=== PATIENT | male | born 1970 | race American Indian/Alaskan Native ===

== ENCOUNTER 2021-01-12 19:02 | Observation (INO) | payer MEDICARE ==
--- NOTE | 2021-01-12 20:12 | Event Note ---
ED Screening Note ED Screening Note: Patient reports he was sent from halfway due to abnormal lab He reports that his creatinine was elevated He denies any physical complaints at this time Patient states that he has a history of chronic hypertension He reports that he was just admitted to [facility] [place] and was admitted to the ICU in December 2020 He states he has not had to be on dialysis since March 2020 He states he previously used to do peritoneal dialysis but he reports that his kidneys recovered and he got to stop dialysis This initial assessment/diagnostic orders/clinical plan/treatment(s) is/are subject to change based on patients health status, clinical progression and re- assessment by fellow clinical providers in the ED. Further treatment and workup at subsequent clinical providers discretion. Patient/guardian urged not to elope from the ED as their condition may be serious if not clinically assessed and managed. Initial orders include: Labs
[2021-01-12 20:36] LABS: Basophils # (Auto) 0.2 K/mm3 (0.0-0.1); Basophils % (Auto) 1.9 % (0.0-1.8); Eosinophils # (Auto) 0.6 K/mm3 (0.0-0.4); Eosinophils % (Auto) 7.5 % (0.0-4.3); Hematocrit 36.5 % (35.5-45.6); Hemoglobin 11.5 gm/dl (11.8-15.2); Lymphocytes # (Auto) 1.6 K/mm3 (1.2-5.4); Lymphocytes % (Auto) 19.6 % (13.4-35.0); Mean Corpuscular HGB Conc 32 % (32-34); Mean Corpuscular Volume 84 fl (84-94); Monocytes # (Auto) 0.3 K/mm3 (0.0-0.8); Platelet Count 244 K/mm3 (140-440); Red Blood Count 4.34 M/mm3 (3.65-5.03); Red Cell Distribution Width 13.7 % (13.2-15.2)
[2021-01-12 21:16] LABS: Albumin 4.2 g/dL (3.9-5); Calcium 8.7 mg/dL (8.4-10.2)
[2021-01-12] MEDS ORDERED: SODIUM POLYSTYRENE 15 GM/60 ML ORAL LIQD PO ONE (21:17)
[2021-01-12] MEDS ORDERED: SODIUM BICARB 8.4% 50 MEQ/50 ML SYRINGE IV ONE (21:31)
[2021-01-12] MEDS ORDERED: CALCIUM GLUCONATE 1,000 MG in SODIUM CHLORIDE 0.9% 100 ML IV ONE (21:31)
[2021-01-12] MEDS ORDERED: DEXTROSE 50% IN WATER (25GM) 50 ML SYRINGE IV ONE (21:31)
[2021-01-12] MEDS ORDERED: INSULIN REGULAR, HUMAN 100 UNITS/1 ML IV ONE (21:31)
--- NOTE | 2021-01-12 21:53 | Emergency Department Report ---
HPI - General Chief Complaint: Recheck/Abnormal Lab/Rx Time Seen by Provider: 01/12/21 21:17 - [facility] HPI: Reassessment 2 The patient is a 50-year-old male present with a chief complaint of abnormal creatinine. The patient had a history of renal failure in the past requiring peritoneal dialysis. Patient states she has not required dialysis since 2020 after his kidney function improved. Patient was recently incarcerated for the past 4 days and states he was not given any of his blood pressure medication. Patient states he had blood work drawn yesterday in skilled nursing was brought to the ED today secondary to elevated creatinine. Patient does not recall where his baseline creatinine is. Patient states he just developed some lightheadedness yesterday. Patient denies any other complaints including shortness of breath or peripheral edema ED Past Medical Hx - Past Medical History Hx Hypertension: Yes Hx Renal Disease: Yes - Surgical History Past Surgical History?: No Additional Surgical History: PD catheter placement and removal - Family History Family history: no significant - Social History Smoking Status: Former Smoker (None since December 18, 2020) Substance Use Type: None, Marijuana ED Review of Systems ROS: Stated complaint: ABNORMAL LABS Other details as noted in HPI Constitutional: no symptoms reported Eyes: denies: eye pain ENT: denies: throat pain Respiratory: no symptoms reported. denies: shortness of breath Cardiovascular: denies: chest pain Endocrine: no symptoms reported Gastrointestinal: denies: abdominal pain Genitourinary: denies: testicular pain Musculoskeletal: denies: back pain Neurological: denies: headache Physical Exam - Physical Exam Vital Signs: Vital Signs 01/12/21 19:11 Temperature 98.4 F Pulse Rate 61 Respiratory 18 Rate Blood Pressure 132/83 O2 Sat by Pulse 95 Oximetry Physical Exam: GENERAL: The patient is well-developed well-nourished male lying on stretcher not appearing to be in acute distress. [] HEENT: Normocephalic. Atraumatic. Extraocular motions are intact. Patient has moist mucous membranes. NECK: Supple. Trachea midline CHEST/LUNGS: Clear to auscultation. There is no respiratory distress noted. HEART/CARDIOVASCULAR: Regular. There is no tachycardia. There is no gallop rub or murmur. ABDOMEN: Abdomen is soft, nontender. Patient has normal bowel sounds. There is no abdominal distention. SKIN: There is no rash. There is no edema. There is no diaphoresis. NEURO: The patient is awake, alert, and oriented. The patient is cooperative. The patient has no focal neurologic deficits. The patient has normal speech. GCS 15 MUSCULOSKELETAL: There is no evidence of acute injury. ED Course Vital Signs 01/12/21 19:11 Temperature 98.4 F Pulse Rate 61 Respiratory 18 Rate Blood Pressure 132/83 O2 Sat by Pulse 95 Oximetry - Consultations Consultation #1: 01/12/21 22:43 Nephrology paged 01/12/21 22:59 Case discussed with [address] Stephen-recommends initiating sodium bicarb 650 mEq p.o. 3 times daily in addition to normal antihyperkalemic meds and repeat BMP in 3 hours. If potassium remains elevated contact him. ED Medical Decision Making - Lab Data Result diagrams: 01/12/21 20:22 01/12/21 20:22 Laboratory Tests 01/12/21 01/12/21 20:22 20:22 WBC 8.3 RBC 4.34 Hgb 11.5 L Hct 36.5 MCV 84 MCH 27 L MCHC 32 RDW 13.7 Plt Count 244 Lymph % (Auto) 19.6 [place] % (Auto) 4.0 Eos % (Auto) 7.5 H Baso % (Auto) 1.9 H Lymph # (Auto) 1.6 [place] # (Auto) 0.3 Eos # (Auto) 0.6 H Baso # (Auto) 0.2 H Seg Neutrophils % 67.0 Seg Neutrophils # 5.6 Sodium 135 L Potassium 5.8 H Chloride 105.3 Carbon Dioxide 16 L Anion Gap 20 BUN 62 H Creatinine 7.2 H Estimated GFR 10 BUN/Creatinine Ratio 9 Glucose 97 Calcium 8.7 Total Bilirubin 0.20 AST 8 ALT 11 Alkaline Phosphatase 68 Total Protein 6.9 Albumin 4.2 Albumin/Globulin Ratio 1.6 - EKG Data -: EKG Interpreted by Me EKG shows normal: sinus rhythm Rate: normal - EKG Data When compared to previous EKG there are: previous EKG unavailable Interpretation: other (No peaked T waves) Critical care attestation.: If time is entered above; I have spent that time in minutes in the direct care of this critically ill patient, excluding procedure time. ED Disposition Clinical Impression: ESRD (end stage renal disease), Hyperkalemia Disposition: 09 ADMITTED INPATIENT Is pt being admited?: Yes Does the pt Need Aspirin: No Condition: Fair Time of Disposition: 22:59 (Hospitalist called (Dr. Munoz))
[2021-01-12] MEDS ORDERED: HYDROmorphone 1 MG/1 ML INJ IV PRN (23:33)
[2021-01-12] MEDS ORDERED: ALBUTEROL 2.5 MG/3 ML NEBU IH PRN (23:33)
[2021-01-12] MEDS ORDERED: MORPHINE 2 MG/1 ML INJ IV PRN (23:33)
[2021-01-12] MEDS ORDERED: ONDANSETRON 4 MG/2 ML INJ IV PRN (23:33)
[2021-01-12] MEDS ORDERED: ACETAMINOPHEN 325 MG TAB PO PRN (23:33)
--- NOTE | 2021-01-12 23:40 | History and Physical Report ---
History of Present Illness Date of examination: 01/12/21 Date of admission: 01/12/21 Chief complaint: Chronic kidney disease Abnormal lab History of present illness: 50-year-old male with history of chronic kidney disease was brought to the emergency room because of abnormal creatinine. The patient had a history of renal failure in the past requiring peritoneal dialysis. Patient has not required dialysis since March 2020 after his kidney function improved. Patient was recently incarcerated for the past 4 days and states he was not given any of his blood pressure medication. Patient states he had blood work drawn yesterday in retirement was brought to the ED today secondary to elevated creatinine. Patient does not recall where his baseline creatinine is. Patient states he just developed some lightheadedness yesterday. Patient denies any other complaints including shortness of breath or peripheral edema In the emergency room patient is found to have potassium of 5.8, BUN 62 and creatinine 7.2. Case discussed with mva still operator Dr. Stephen-recommends initiating sodium bicarb 650 mEq p.o. 3 times daily in addition to normal antihyperkalemic meds and repeat BMP in 3 hours. Past History Past Medical History: ESRD, hypertension, renal failure Medications and Allergies Allergies Allergy/AdvReac Type Severity Reaction Status Date / Time No Known Allergies Allergy Verified 01/12/21 21:35 Active Meds: Active Medications Acetaminophen (Acetaminophen 325 Mg Tab) 650 mg PO Q4H PRN PRN Reason: Pain MILD(1-3)/Fever >100.5/MATA Albuterol (Albuterol 2.5 Mg/3 Ml Nebu) 2.5 mg IH Q4HRT PRN PRN Reason: Shortness Of Breath Albuterol/Ipratropium (Ipratropium/Albuterol Sulfate 3 Ml Ampul.Neb) 1 ampul IH Q6HRT YEN Famotidine (Famotidine 20 Mg Tab) 20 mg PO BID YEN Heparin Sodium (Porcine) (Heparin 5,000 Unit/1 Ml Vial) 5,000 unit SUB-Q Q12HR YEN Hydromorphone HCl (Hydromorphone 1 Mg/1 Ml Inj) 0.5 mg IV Q3H PRN PRN Reason: Pain , Severe (7-10) Sodium Chloride (Nacl 0.45% 1000 Ml) 1,000 mls @ 75 mls/hr IV DIRECT YEN Morphine Sulfate (Morphine 2 Mg/1 Ml Inj) 2 mg IV Q4H PRN PRN Reason: Pain, Moderate (4-6) Ondansetron HCl (Ondansetron 4 Mg/2 Ml Inj) 4 mg IV Q8H PRN PRN Reason: Nausea And Vomiting Sodium Bicarbonate (Sodium Bicarbonate 650 Mg Tab) 650 mg PO TID YEN Sodium Chloride (Sodium Chloride 0.9% 10 Ml Flush Syringe) 10 ml IV BID YEN Sodium Chloride (Sodium Chloride 0.9% 10 Ml Flush Syringe) 10 ml IV PRN PRN PRN Reason: LINE FLUSH Sodium Polystyrene Sulfonate (Sodium Polystyrene 15 Gm/60 Ml Oral Liqd) 30 gm PO Q4H YEN Stop: 01/13/21 03:46 Review of Systems All systems: negative Constitutional: other Exam - Constitutional Vitals: Temp Pulse Resp BP Pulse Ox 98.4 F 61 18 132/83 95 01/12/21 19:11 01/12/21 19:11 01/12/21 19:11 01/12/21 19:11 01/12/21 19:11 General appearance: Present: no acute distress, well-nourished - EENT Eyes: Present: PERRL ENT: hearing intact, clear oral mucosa - Neck Neck: Present: supple, normal ROM - Respiratory Respiratory effort: normal Respiratory: bilateral: CTA - Cardiovascular Heart Sounds: Present: S1 & S2. Absent: rub, click - Extremities Extremities: pulses symmetrical, No edema Peripheral Pulses: within normal limits - Abdominal General gastrointestinal: Present: soft, non-tender, non-distended, normal bowel sounds Male genitourinary: Present: normal - Integumentary Integumentary: Present: clear, warm, dry - Musculoskeletal Musculoskeletal: gait normal, strength equal bilaterally - Psychiatric Psychiatric: appropriate mood/affect, intact judgment & insight - Neurologic Neurologic: CNII-XII intact, moves all extremities Results - Labs CBC & Chem 7: 01/12/21 20:22 01/12/21 20:22 Labs: Laboratory Last Values WBC 8.3 K/mm3 (4.5-11.0) 01/12/21 20:22 RBC 4.34 M/mm3 (3.65-5.03) 01/12/21 20:22 Hgb 11.5 gm/dl (11.8-15.2) L 01/12/21 20:22 Hct 36.5 % (35.5-45.6) 01/12/21 20:22 MCV 84 fl (84-94) 01/12/21 20: MCH 27 pg (28-32) L 01/12/21 20:22 MCHC 32 % (32-34) 01/12/21 20:22 RDW 13.7 % (13.2-15.2) 01/12/21 20:22 Plt Count 244 K/mm3 (140-440) 01/12/21 20:22 Lymph % (Auto) 19.6 % (13.4-35.0) 01/12/21 20:22 [place] % (Auto) 4.0 % (0.0-7.3) 01/12/21 20:22 Eos % (Auto) 7.5 % (0.0-4.3) H 01/12/21 20:22 Baso % (Auto) 1.9 % (0.0-1.8) H 01/12/21 20:22 Lymph # (Auto) 1.6 K/mm3 (1.2-5.4) 01/12/21 20:22 [place] # (Auto) 0.3 K/mm3 (0.0-0.8) 01/12/21 20:22 Eos # (Auto) 0.6 K/mm3 (0.0-0.4) H 01/12/21 20:22 Baso # (Auto) 0.2 K/mm3 (0.0-0.1) H 01/12/21 20:22 Seg Neutrophils % 67.0 % (40.0-70.0) 01/12/21 20:22 Seg Neutrophils # 5.6 K/mm3 (1.8-7.7) 01/12/21 20:22 Sodium 135 mmol/L (137-145) L 01/12/21 20:22 Potassium 5.8 mmol/L (3.6-5.0) H 01/12/21 20:22 Chloride 105.3 mmol/L (98-107) 01/12/21 20:22 Carbon Dioxide 16 mmol/L (22-30) L 01/12/21 20:22 Anion Gap 20 mmol/L 01/12/21 20:22 BUN 62 mg/dL (9-20) H 01/12/21 20:22 Creatinine 7.2 mg/dL (0.8-1.3) H 01/12/21 20:22 Estimated GFR 10 ml/min 01/12/21 20:22 BUN/Creatinine Ratio 9 % 01/12/21 20:22 Glucose 97 mg/dL (75-100) 01/12/21 20:22 Calcium 8.7 mg/dL (8.4-10.2) 01/12/21 20:22 Total Bilirubin 0.20 mg/dL (0.1-1.2) 01/12/21 20:22 AST 8 units/L (5-40) 01/12/21 20:22 ALT 11 units/L (7-56) 01/12/21 20:22 Alkaline Phosphatase 68 units/L (35-129) 01/12/21 20:22 Total Protein 6.9 g/dL (6.3-8.2) 01/12/21 20:22 Albumin 4.2 g/dL (3.9-5) 01/12/21 20:22 Albumin/Globulin Ratio 1.6 % 01/12/21 20:22 Assessment and Plan VTE prophylaxis?: Chemical Plan of care discussed with patient/family: Yes - Patient Problems (1) ESRD (end stage renal disease) Current Visit: Yes Status: Acute Plan to address problem: Admit the patient to [facility] telemetry. Renal diet. Half-normal saline at the rate of 75 cc/h. Avoid nephrotoxic drug. Renally dose medication. Will consult nephrology for evaluation. Recheck BMP in the morning (2) Hyperkalemia Current Visit: Yes Status: Acute Plan to address problem: Calcium gluconate 1 g IV x1 dose. Insulin 10 units IV x1 dose. D50 1 ampoule via IV push x1. Kayexalate 30 g p.o. every 4 hours x2 dose. Will consult nephrology for evaluation. Recheck BMP in 3 hours. We will monitor the patient closely (3) Hypertension Current Visit: Yes Status: Acute Plan to address problem: Hydralazine 10 mg IV every 6 hours as needed. We will monitor the patient closely. We will continue the home medication (4) DVT prophylaxis Current Visit: Yes Status: Acute Plan to address problem: Heparin 5000 units subcu every 12 hours for DVT prophylaxis. Pepcid 20 mg p.o. twice daily for GI prophylaxis. Patient is a full code
[2021-01-12] MEDS ORDERED: hydrALAZINE 20 MG/1 ML INJ IV PRN (23:41)
[2021-01-12] MEDS ORDERED: SODIUM CHLORIDE 0.45% 1000 ML 1,000 ML IV SCH (23:45)
[2021-01-13] MEDS: SODIUM POLYSTYRENE 15 GM/60 ML ORAL LIQD PO SCH ×2 (03:28→08:30)
[2021-01-13] MEDS: IPRATROPIUM/ALBUTEROL SULFATE 3 ML AMPUL.NEB IH SCH ×2 (05:10→08:13)
[2021-01-13 06:31] LABS: Basophils % (Auto) 0.4 % (0.0-1.8); Eosinophils # (Auto) 0.1 K/mm3 (0.0-0.4); Eosinophils % (Auto) 1.2 % (0.0-4.3); Hemoglobin 10.9 gm/dl (11.8-15.2); Lymphocytes # (Auto) 1.1 K/mm3 (1.2-5.4); Lymphocytes % (Auto) 12.1 % (13.4-35.0); Mean Corpuscular HGB Conc 33 % (32-34); Mean Corpuscular Volume 84 fl (84-94); Monocytes # (Auto) 0.3 K/mm3 (0.0-0.8); Monocytes % (Auto) 3.4 % (0.0-7.3); Platelet Count 234 K/mm3 (140-440); Red Blood Count 3.95 M/mm3 (3.65-5.03); Red Cell Distribution Width 13.5 % (13.2-15.2)
[2021-01-13 06:37] LABS: Albumin 3.8 g/dL (3.9-5); Calcium 8.7 mg/dL (8.4-10.2)
[2021-01-13] MEDS ORDERED: SODIUM BICARBONATE 650 MG TAB PO SCH (08:00)
[2021-01-13] MEDS ORDERED: SODIUM POLYSTYRENE 15 GM/60 ML ORAL LIQD PO ONE (08:03)
--- NOTE | 2021-01-13 08:05 | Consultation ---
History of Present Illness - Reason for Consult Consult date: 01/13/21 acute renal failure Past History Past Medical History: ESRD, hypertension, renal failure Medications and Allergies Allergies Allergy/AdvReac Type Severity Reaction Status Date / Time No Known Allergies Allergy Verified 01/12/21 21:35 Active Meds: Active Medications Acetaminophen (Acetaminophen 325 Mg Tab) 650 mg PO Q4H PRN PRN Reason: Pain MILD(1-3)/Fever >100.5/MATA Albuterol (Albuterol 2.5 Mg/3 Ml Nebu) 2.5 mg IH Q4HRT PRN PRN Reason: Shortness Of Breath Albuterol/Ipratropium (Ipratropium/Albuterol Sulfate 3 Ml Ampul.Neb) 1 ampul IH Q6HRT [facility] Last Admin: 01/13/21 05:10 Dose: Not Given Documented by: Famotidine (Famotidine 10 Mg Tab) 10 mg PO BID [facility] Heparin Sodium (Porcine) (Heparin 5,000 Unit/1 Ml Vial) 5,000 unit SUB-Q Q12HR [facility] Hydralazine HCl (Hydralazine 20 Mg/1 Ml Inj) 10 mg IV Q6H PRN PRN Reason: Blood Pressure Last Admin: 01/13/21 05:35 Dose: 10 mg Documented by: Hydromorphone HCl (Hydromorphone 1 Mg/1 Ml Inj) 0.5 mg IV Q3H PRN PRN Reason: Pain , Severe (7-10) Sodium Chloride (Nacl 0.45% 1000 Ml) 1,000 mls @ 75 mls/hr IV DIRECT [facility] Last Admin: 01/13/21 02:51 Dose: 75 mls/hr Documented by: Morphine Sulfate (Morphine 2 Mg/1 Ml Inj) 2 mg IV Q4H PRN PRN Reason: Pain, Moderate (4-6) Ondansetron HCl (Ondansetron 4 Mg/2 Ml Inj) 4 mg IV Q8H PRN PRN Reason: Nausea And Vomiting Last Admin: 01/13/21 03:33 Dose: 4 mg Documented by: Sodium Bicarbonate (Sodium Bicarbonate 650 Mg Tab) 650 mg PO TID [facility] Sodium Chloride (Sodium Chloride 0.9% 10 Ml Flush Syringe) 10 ml IV BID [facility] Sodium Chloride (Sodium Chloride 0.9% 10 Ml Flush Syringe) 10 ml IV PRN PRN PRN Reason: LINE FLUSH Sodium Polystyrene Sulfonate (Sodium Polystyrene 15 Gm/60 Ml Oral Liqd) 15 gm PO ONCE ONE Stop: 01/13/21 08:04 Exam - Vital Signs Vital signs: Vital Signs Temp Pulse Resp BP Pulse Ox 98.4 F 61 18 132/83 95 01/12/21 19:11 01/12/21 19:11 01/12/21 19:11 01/12/21 19:11 01/12/21 19:11 Results - Lab Results 01/13/21 05:33 01/13/21 05:33 Most recent lab results Calcium 8.7 mg/dL (8.4-10.2) 01/13/21 05:33
[2021-01-13] MEDS ORDERED: cloNIDine 0.2 MG TAB PO PRN (08:29)
[2021-01-13] MEDS ORDERED: hydrALAZINE 20 MG/1 ML INJ IV PRN (08:30)
--- NOTE | 2021-01-13 08:36 | Progress Note ---
Assessment and Plan Assessment and plan: History of present illness: 50-year-old male with history of chronic kidney disease was brought to the emergency room because of abnormal creatinine. The patient had a history of renal failure in the past requiring peritoneal dialysis. Patient has not required dialysis since March 2020 after his kidney function improved. Patient was recently incarcerated for the past 4 days and states he was not given any of his blood pressure medication. Patient states he had blood work drawn yesterday in snf was brought to the ED today secondary to elevated creatinine. Patient does not recall where his baseline creatinine is. Patient states he just developed some lightheadedness yesterday. Patient denies any other complaints including shortness of breath or peripheral edema In the emergency room patient is found to have potassium of 5.8, BUN 62 and creatinine 7.2. Case discussed with chip separator Dr. Stephen-recommends initiating sodium bicarb 650 mEq p.o. 3 times daily in addition to normal antihyperkalemic meds and repeat BMP in 3 hours. Hospital Course: 01/13: Assessment and Plan: - Patient Problems (1) ESRD (end stage renal disease) Current Visit: Yes Status: Acute Plan to address problem: Admit the patient to med telemetry. Renal diet. Half-normal saline at the rate of 75 cc/h. Avoid nephrotoxic drug. Renally dose medication. Will consult nephrology for evaluation. Recheck BMP in the morning (2) Hyperkalemia Current Visit: Yes Status: Acute Plan to address problem: Calcium gluconate 1 g IV x1 dose. Insulin 10 units IV x1 dose. D50 1 ampoule via IV push x1. Kayexalate 30 g p.o. every 4 hours x2 dose. Will consult nephrology for evaluation. Recheck BMP in 3 hours. We will monitor the patient closely (3) Hypertensive Emergency Current Visit: Yes Status: Acute Plan to address problem: Hydralazine 10 mg IV every 4 hours as needed. Catapres We will monitor the patient closely. We will continue the home medication (4) DVT prophylaxis Current Visit: Yes Status: Acute Plan to address problem: Heparin 5000 units subcu every 12 hours for DVT prophylaxis. Pepcid 20 mg p.o. twice daily for GI prophylaxis. Patient is a full code Hospitalist Physical - Constitutional Vitals: Temp Pulse Resp BP Pulse Ox 98.2 F 56 L 18 208/112 99 01/13/21 08:24 01/13/21 08:24 01/13/21 08:24 01/13/21 08:24 01/13/21 08:24 General appearance: Present: no acute distress, well-nourished Results - Labs CBC & Chem 7: 01/13/21 05:33 01/13/21 05:33 Labs: Laboratory Last Values WBC 9.2 K/mm3 (4.5-11.0) 01/13/21 05:33 RBC 3.95 M/mm3 (3.65-5.03) 01/13/21 05:33 Hgb 10.9 gm/dl (11.8-15.2) L 01/13/21 05:33 Hct 33.0 % (35.5-45.6) L 01/13/21 05:33 MCV 84 fl (84-94) 01/13/21 05:33 MCH 28 pg (28-32) 01/13/21 05:33 MCHC 33 % (32-34) 01/13/21 05:33 RDW 13.5 % (13.2-15.2) 01/13/21 05:33 Plt Count 234 K/mm3 (140-440) 01/13/21 05:33 Lymph % (Auto) 12.1 % (13.4-35.0) L 01/13/21 05:33 [place] % (Auto) 3.4 % (0.0-7.3) 01/13/21 05:33 Eos % (Auto) 1.2 % (0.0-4.3) 01/13/21 05:33 Baso % (Auto) 0.4 % (0.0-1.8) 01/13/21 05:33 Lymph # (Auto) 1.1 K/mm3 (1.2-5.4) L 01/13/21 05:33 [place] # (Auto) 0.3 K/mm3 (0.0-0.8) 01/13/21 05:33 Eos # (Auto) 0.1 K/mm3 (0.0-0.4) 01/13/21 05:33 Baso # (Auto) 0.0 K/mm3 (0.0-0.1) 01/13/21 05:33 Seg Neutrophils % 82.9 % (40.0-70.0) H 01/13/21 05:33 Seg Neutrophils # 7.6 K/mm3 (1.8-7.7) 01/13/21 05:33 Sodium 137 mmol/L (137-145) 01/13/21 05:33 Potassium 4.9 mmol/L (3.6-5.0) 01/13/21 05:33 Chloride 105.2 mmol/L (98-107) 01/13/21 05:33 Carbon Dioxide 16 mmol/L (22-30) L 01/13/21 05:33 Anion Gap 21 mmol/L 01/13/21 05:33 BUN 56 mg/dL (9-20) H 01/13/21 05:33 Creatinine 7.1 mg/dL (0.8-1.3) H 01/13/21 05:33 Estimated GFR 10 ml/min 01/13/21 05:33 BUN/Creatinine Ratio 8 % 01/13/21 05:33 Glucose 115 mg/dL (75-100) H 01/13/21 05:33 Calcium 8.7 mg/dL (8.4-10.2) 01/13/21 05:33 Total Bilirubin 0.20 mg/dL (0.1-1.2) 01/13/21 05:33 AST 11 units/L (5-40) 01/13/21 05:33 ALT 11 units/L (7-56) 01/13/21 05:33 Alkaline Phosphatase 64 units/L (35-129) 01/13/21 05:33 Total Protein 6.8 g/dL (6.3-8.2) 01/13/21 05:33 Albumin 3.8 g/dL (3.9-5) L 01/13/21 05:33 Albumin/Globulin Ratio 1.3 % 01/13/21 05:33 Rahman/IV: Voiding Method Toilet Active Medications - Current Medications Current Medications: Generic Name Dose Route Start Last Admin Trade Name Freq PRN Reason Stop Dose Admin Acetaminophen 650 mg 01/12/21 23:33 Acetaminophen 325 Mg Tab PO Q4H PRN Pain MILD(1-3)/Fever >100.5/MATA Albuterol 2.5 mg 01/12/21 23:33 Albuterol 2.5 Mg/3 Ml Nebu IH Q4HRT PRN Shortness Of Breath Albuterol/Ipratropium 1 ampul 01/13/21 02:00 01/13/21 08:13 Ipratropium/Albuterol Sulfate 3 Ml Ampul.Neb IH 1 ampul Q6HRT YEN Administration Clonidine HCl 0.2 mg 01/13/21 08:29 Clonidine 0.2 Mg Tab PO Q4H PRN SBP>170 Famotidine 10 mg 01/13/21 10:00 Famotidine 10 Mg Tab PO BID YEN Heparin Sodium (Porcine) 5,000 unit 01/13/21 10:00 Heparin 5,000 Unit/1 Ml Vial SUB-Q Q12HR YEN Hydralazine HCl 10 mg 01/13/21 08:30 Hydralazine 20 Mg/1 Ml Inj IV Q4HR PRN SBP >160 Hydromorphone HCl 0.5 mg 01/12/21 23:33 Hydromorphone 1 Mg/1 Ml Inj IV Q3H PRN Pain , Severe (7-10) Sodium Chloride 1,000 mls @ 75 mls/hr 01/12/21 23:45 01/13/21 02:51 Nacl 0.45% 1000 Ml IV 75 mls/hr DIRECT YEN Administration Morphine Sulfate 2 mg 01/12/21 23:33 Morphine 2 Mg/1 Ml Inj IV Q4H PRN Pain, Moderate (4-6) Ondansetron HCl 4 mg 01/12/21 23:33 01/13/21 03:33 Ondansetron 4 Mg/2 Ml Inj IV 4 mg Q8H PRN Administration Nausea And Vomiting Sodium Bicarbonate 650 mg 01/13/21 08:00 Sodium Bicarbonate 650 Mg Tab PO TID YEN Sodium Chloride 10 ml 01/13/21 10:00 Sodium Chloride 0.9% 10 Ml Flush Syringe IV BID YEN Sodium Chloride 10 ml 01/12/21 23:33 Sodium Chloride 0.9% 10 Ml Flush Syringe IV PRN PRN LINE FLUSH
--- NOTE | 2021-01-13 09:42 | Electrocardiograph Report ---
[facility] Test Date: 2021-01-12 Test Time: 22:22:37 Pat Name: KEO CASTILLO Department: Room: A483 1 Gender: M Motion Picture Narrator: ROS : 1970 Requested By: ELIER ZUÑIGA Order Number: [id number] Reading MD: John Willis Measurements Intervals [place] Rate: 59 P: 52 MS: 180 QRS: -7 QRSD: 93 T: 62 QT: 410 QTc: 406 Interpretive Statements Sinus rhythm Probable left atrial enlargement Probable left ventricular hypertrophy No previous ECG available for comparison Electronically Signed On 01-13-2021 9:42:07 EST by John Willis
[2021-01-13] MEDS ORDERED: HEPARIN 5,000 UNIT/1 ML VIAL SUB-Q SCH (10:00)
[2021-01-13] MEDS ORDERED: FAMOTIDINE 20 MG TAB PO SCH (10:00)
[2021-01-13] MEDS ORDERED: FAMOTIDINE 10 MG TAB PO SCH (10:00)
--- NOTE | 2021-01-13 11:04 | XRay Report ---
CHEST 1 VIEW 01/13/2021 9:49 AM INDICATION / CLINICAL INFORMATION: congestion. COMPARISON: None available. FINDINGS: SUPPORT DEVICES: None. HEART / MEDIASTINUM: No significant abnormality. LUNGS / PLEURA: No significant pulmonary or pleural abnormality. No pneumothorax. ADDITIONAL FINDINGS: No significant additional findings. IMPRESSION: No acute abnormality. Signer Name: Rambo Collier MD Signed: 01/13/2021 11:00 AM Workstation Name: [id number]
[2021-01-13 11:45] VITALS: BP 136/77
--- NOTE | 2021-01-13 11:51 | Discharge Summary ---
Providers - Providers Date of Admission: 01/13/21 02:20 Date of discharge: 01/13/21 Attending physician: MALAIKA CARRILLO MD 01/12/21 22:58 Consult to Physician [CONS] Urgent Comment: Dr. Kendrick spoke with Dr. Stephen @ [phone] Consulting Provider: REBECCA STEPHEN Physician Instructions: Reason For Exam: Hyperkalemia, ESRD Primary care physician: SOD STRIPPER Hospitalization Reason for admission: Elevated potassium Condition: Fair Hospital course: History of present illness: 50-year-old male with history of chronic kidney disease was brought to the emergency room because of abnormal creatinine. The patient had a history of renal failure in the past requiring peritoneal dialysis. Patient has not required dialysis since March 2020 after his kidney function improved. Patient was recently incarcerated for the past 4 days and states he was not given any of his blood pressure medication. Patient states he had blood work drawn yesterday in retirement was brought to the ED today secondary to elevated creatinine. Patient does not recall where his baseline creatinine is. Patient states he just developed some lightheadedness yesterday. Patient denies any other complaints including shortness of breath or peripheral edema In the emergency room patient is found to have potassium of 5.8, BUN 62 and creatinine 7.2. Case discussed with orthotic practitioner Dr. Stephen-recommends initiating sodium bicarb 650 mEq p.o. 3 times daily in addition to normal antihyperkalemic meds and repeat BMP in 3 hours. Hospital Course: 01/13: Patient will be discharged today. Patient has elevated blood pressure and has a history of CKD. He states that he had not taken his home blood pressure medication except for his lisinopril. He been told by his orthotic practitioner to discontinue lisinopril due to elevated potassium but never did. Patient potassium on admission found to be 5.8. Potassium is now 4.3. Patient states that he is producing adequate urine. His blood pressure has improved after he states that he took his blood pressure medication that was in his book bag this morning out of frustration with"being on the wrong meds". Reviewed blood pressure found to be 133/80. Patient states that he has an appointment with his orthotic practitioner Dr. Jayesh Diehl tomorrow to discuss the next steps in his care. He was advised to keep this follow-up appointment. Assessment and Plan: - Patient Problems (1) ESRD (end stage renal disease) Current Visit: Yes Status: Acute Plan to address problem: Admit the patient to med telemetry. Renal diet. Half-normal saline at the rate of 75 cc/h. Avoid nephrotoxic drug. Renally dose medication. Will consult nephrology for evaluation. Recheck BMP in the morning (2) Hyperkalemia Current Visit: Yes Status: Acute Plan to address problem: Calcium gluconate 1 g IV x1 dose. Insulin 10 units IV x1 dose. D50 1 ampoule via IV push x1. Kayexalate 30 g p.o. every 4 hours x2 dose. Will consult nephrology for evaluation. Recheck BMP in 3 hours. We will monitor the patient closely (3) Hypertensive Emergency Current Visit: Yes Status: Acute Plan to address problem: Hydralazine 10 mg IV every 4 hours as needed. Catapres We will monitor the patient closely. We will continue the home medication (4) DVT prophylaxis Current Visit: Yes Status: Acute Plan to address problem: Heparin 5000 units subcu every 12 hours for DVT prophylaxis. Pepcid 20 mg p.o. twice daily for GI prophylaxis. Patient is a full code Disposition: 01 HOME / SELF CARE / HOMELESS Final Discharge Diagnosis (Prints w/discharge instructions): ESRD, hypertensive emergency, hyperkalemia Time spent for discharge: 25 Core Measure Documentation - Palliative Care Palliative Care/ Comfort Measures: Not Applicable - Core Measures Any of the following diagnoses?: none Exam - Physical Exam Narrative exam: Physical Exam: VITAL SIGNS: Reviewed. GENERAL: The patient appears normally developed, Vital signs as documented. HEAD: No signs of head trauma. EYES: Pupils are equal. Extraocular motions intact. EARS: Hearing grossly intact. MOUTH: Oropharynx is normal. NECK: No adenopathy, no JVD. CHEST: Chest with clear breath sounds bilaterally. No wheezes, rales, or rhonchi. CARDIAC: Regular rate and rhythm. S1 and S2, without murmurs, gallops, or rubs. VASCULAR: No Edema. Peripheral pulses normal and equal in all extremities. ABDOMEN: Soft, non tender and non distended. No rebound or guarding, and no masses palpated. Bowel Sounds normal. MUSCULOSKELETAL: Good range of motion of all major joints. Extremities without clubbing, cyanosis or edema. NEUROLOGIC EXAM: Alert and oriented x 4. no focal sensory or strength deficits. PSYCHIATRIC: Mood normal. SKIN: detail exam as documented in skin assessment - Constitutional Vitals: Temp Pulse Resp BP Pulse Ox 98.2 F 64 18 136/77 98 01/13/21 08:24 01/13/21 11:44 01/13/21 11:18 01/13/21 11:44 01/13/21 11:18 Plan Activity: no restrictions Follow up with: PRIMARY CARE, [Primary Care Provider] - 3-5 Days
[2021-01-13] MEDS ORDERED: NIFEdipine XL 60 MG TAB PO SCH (12:00)
[2021-01-13] MEDS ORDERED: carvediloL 25 MG TAB PO SCH (12:00)
[2021-01-13] MEDS ORDERED: cloNIDine 0.1 MG TAB PO SCH (12:00)
== END 2021-01-13 12:30 | disposition home or self-care (01) ==
LOC: ED 19:02 → 4A 01-13 02:20
PROVIDERS: ADMIT Hospitalist; ATTEND Internal Medicine
DX: E87.5 Hyperkalemia (principal); I12.0 Hypertensive chronic kidney disease with stage 5 chronic kidney disease or end stage renal disease; N18.6 End stage renal disease; Z99.2 Dependence on renal dialysis; Z87.891 Personal history of nicotine dependence; Z79.899 Other long term (current) drug therapy; Z98.890 Other specified postprocedural states
CPT/HCPCS: 36415; 71045; 80053; 85025; 93005; 94640; 96361; 96365; 96366; 96375; 99284; G0378; J0360; J0610; J2405; J3490; J7030; Q9967; J1815